=== PATIENT | female | born 1965 | race African-American/Black ===

== ENCOUNTER 2016-09-24 03:12 | Emergency (ER) | payer SELFPAY ==
[~2016-09-24] VITALS: Ht 170.2 cm; Wt 55.0 kg
[2016-09-24] MEDS ORDERED: DIPHENHYDRAMINE 50MG/ML VIAL IM ONE (06:30)
[2016-09-24] MEDS ORDERED: IBUPROFEN 400MG TABLET PO ONE (06:45)
[2016-09-24 06:47] VITALS: BP 123/94
== END 2016-09-24 07:27 | disposition home or self-care (01) ==
LOC: ER 03:34
DX: L03.213 Periorbital cellulitis (principal); T78.49XA Other allergy, initial encounter; F17.210 Nicotine dependence, cigarettes, uncomplicated; Z98.890 Other specified postprocedural states; X58.XXXA Exposure to other specified factors, initial encounter
CPT/HCPCS: 96372; 99283; J1200; Z7610

== ENCOUNTER 2021-01-14 15:01 | Emergency (ER) | payer MEDICAID ==
[~2021-01-14] VITALS: Ht 170.2 cm; Wt 76.3 kg
[2021-01-14 16:11] LABS: BASOPHILS % 0.7 % (0.0-2.0); HEMATOCRIT. 39.3 % (36.0-48.0); HEMOGLOBIN. 12.7 g/dL (12.0-16.0); LYMPHOCYTES % 37.4 % (20.0-50.0); MEAN CORPUSCULAR HEMOGLOBIN 29.5 pg (28.0-32.0); MEAN CORPUSCULAR VOLUME 91.6 fL (81.0-99.0); MEAN PLATELET VOLUME 8.8 fl (7.4-10.4); MONOCYTES % 6.7 % (2.0-8.0); NEUTROPHILS % 54.2 % (40.0-76.0); PLATELET 314 x1000/uL (130-400); RED BLOOD CELL COUNT 4.29 mill/uL (4.2-5.4); RED CELL DISTRIBUTION WIDTH 14.2 % (11.6-14.6)
[2021-01-14] MEDS ORDERED: LORAZEPAM 1MG TABLET PO ONE (16:15)
[2021-01-14 16:18] LABS: CHLORIDE 109 mEq/L (98-107)
[2021-01-14 18:00] VITALS: BP 155/87
== END 2021-01-14 19:36 | disposition home or self-care (01) ==
LOC: ER 15:01
DX: I10 Essential (primary) hypertension (principal); Z98.890 Other specified postprocedural states
CPT/HCPCS: 36415; 80048; 81025; 82962; 85025; 93005; 99284

== ENCOUNTER 2023-06-23 12:50 | Emergency (ER) | payer MEDICAID, OTHER ==
[~2023-06-23] VITALS: Ht 177.8 cm; Wt 65.0 kg
[2023-06-23 13:08] VITALS: O2SAT 100
[2023-06-23] MEDS: ACETAMINOPHEN 325MG TABLET PO STA (13:43)
[2023-06-23 14:12] LABS: BASOPHILS % 0.4 % (0.0-2.0); EOSINOPHILS % 1.2 % (0.0-5.0); HEMATOCRIT. 38.9 % (36.0-48.0); HEMOGLOBIN. 12.8 g/dL (12.0-16.0); LYMPHOCYTES % 32.7 % (20.0-50.0); MEAN CORPUSCULAR HGB CONC 32.8 g/dL (31.0-37.0); MEAN CORPUSCULAR VOLUME 91.5 fL (81.0-99.0); MEAN PLATELET VOLUME 8.8 fl (7.4-10.4); MONOCYTES % 6.4 % (2.0-8.0); NEUTROPHILS % 59.3 % (40.0-76.0); PLATELET 360 x1000/uL (130-400); RED BLOOD CELL COUNT 4.25 mill/uL (4.2-5.4); RED CELL DISTRIBUTION WIDTH 14.9 % (11.6-14.6); WHITE BLOOD COUNT 6.8 x1000/uL (4.5-11.0)
[2023-06-23 14:20] LABS: CHLORIDE 109 mEq/L (98-107); POTASSIUM 3.5 mEq/L (3.5-5.1); SODIUM 140 mEq/L (136-145)
[2023-06-23 14:21] LABS: CARBON DIOXIDE 25 mEq/L (21-32)
[2023-06-23 14:26] LABS: CREATININE 0.9 mg/dL (0.6-1.0); GLUCOSE 131 mg/dL (70-105); UREA NITROGEN BLOOD 10 mg/dL (9-23)
[2023-06-23 14:27] LABS: TROPONIN I HIGH SENSITIVITY 11 ng/L (3.0-34)
[2023-06-23 14:28] LABS: CREATINE KINASE 53 IU/L (34-145)
[2023-06-23] MEDS: HYDRALAZINE HCL 10MG TABLET PO ONE (14:40)
[2023-06-23 15:47] LABS: CLARITY URINE CLEAR (CLEAR); COLOR URINE YELLOW (YELLOW); GLUCOSE URINE NEGATIVE (NEGATIVE); KETONES URINE NEGATIVE (NEGATIVE); LEUKOCYTE ESTERASE URINE NEGATIVE (NEGATIVE); NITRITE URINE NEGATIVE (NEGATIVE); OCCULT BLOOD URINE NEGATIVE (NEGATIVE); PROTEIN URINE NEGATIVE (NEGATIVE); SPECIFIC GRAVITY URINE 1.014 (1.005-1.030); UROBILINOGEN URINE 0.2 E.U./dL (0.2-1.0)
[2023-06-23 16:07] LABS: TROPONIN I HIGH SENSITIVITY 15 ng/L (3.0-34)
[2023-06-23] MEDS ORDERED: LABETALOL HCL VIAL 20 MG/4 ML VIAL IV ONE (16:30)
[2023-06-23] MEDS: LABETALOL 5MG/ML SYR 20 MG/4 ML SYRINGE IV NR (16:42)
[2023-06-23] MEDS ORDERED: AMLO10TA80 MT (16:50)
[2023-06-23] MEDS ORDERED: PHEN-815 MT (16:50)
[2023-06-23 17:20] VITALS: BP 167/79; PULSE 78; RESP 18; TEMP 98
== END 2023-06-23 17:24 | disposition home or self-care (01) ==
LOC: ER 12:50
DX: R25.2 Cramp and spasm (principal); I10 Essential (primary) hypertension; Z98.890 Other specified postprocedural states
CPT/HCPCS: 80048; 81003; 82550; 85025; 84484; 36415; 71045; 96374; 99285; J3490; Z7610 ×5

== ENCOUNTER 2023-06-25 17:52 | Emergency (ER) | payer MEDICAID ==
[~2023-06-25] VITALS: Ht 170.2 cm; Wt 73.5 kg
[~2023-06-25 17:52] MED LIST: AMLO10TA80 MT; PHEN-815 MT
[2023-06-25 18:02] VITALS: O2SAT 100
[2023-06-25] MEDS ORDERED: HYDRALAZINE HCL 50MG TABLET PO ONE (18:45)
[2023-06-25 18:49] VITALS: BP 189/91; PULSE 78; RESP 18; TEMP 98.2
[2023-06-25] MEDS ORDERED: HYDR50TA40 MT (19:11)
[2023-06-25] MEDS: HYDRALAZINE HCL 25MG TABLET PO NR (19:35)
== END 2023-06-25 19:40 | disposition home or self-care (01) ==
LOC: ER 17:52
DX: I10 Essential (primary) hypertension (principal); Z98.890 Other specified postprocedural states
CPT/HCPCS: 99283; Z7610 ×3

== ENCOUNTER 2023-11-01 15:28 | Emergency (ER) | payer MEDICAID ==
[~2023-11-01] VITALS: Ht 170.2 cm; Wt 73.9 kg
[~2023-11-01 15:28] MED LIST changes: +HYDR50TA40 MT
[2023-11-01 15:30] VITALS: O2SAT 99
[2023-11-01 15:44] VITALS: BP 202/103; PULSE 98; TEMP 99.1; O2SAT 100
[2023-11-01 16:25] LABS: BASOPHILS % 0.4 % (0.0-2.0); EOSINOPHILS % 1.3 % (0.0-5.0); HEMOGLOBIN. 13.2 g/dL (12.0-16.0); MEAN CORPUSCULAR HEMOGLOBIN 30.9 pg (28.0-32.0); MEAN CORPUSCULAR HGB CONC 33.9 g/dL (31.0-37.0); MEAN CORPUSCULAR VOLUME 91.3 fL (81.0-99.0); MEAN PLATELET VOLUME 7.8 fl (7.4-10.4); MONOCYTES % 6.4 % (2.0-8.0); NEUTROPHILS % 46.9 % (40.0-76.0); PLATELET 381 x1000/uL (130-400); RED BLOOD CELL COUNT 4.28 mill/uL (4.2-5.4); RED CELL DISTRIBUTION WIDTH 14.7 % (11.6-14.6)
[2023-11-01 16:34] LABS: CHLORIDE 108 mEq/L (98-107); POTASSIUM 3.8 mEq/L (3.5-5.1); SODIUM 140 mEq/L (136-145)
[2023-11-01 16:35] LABS: CARBON DIOXIDE 25 mEq/L (21-32)
[2023-11-01 16:36] LABS: CALCIUM 9.8 mg/dL (8.7-10.4)
[2023-11-01 16:40] LABS: CREATININE 0.9 mg/dL (0.6-1.0); GLUCOSE 97 mg/dL (70-105); UREA NITROGEN BLOOD 12 mg/dL (9-23)
[2023-11-01] MEDS ORDERED: HYDR50TA40 MT (17:26)
[2023-11-01] MEDS ORDERED: AMLO10TA80 MT (17:27)
[2023-11-01] MEDS ORDERED: KETO10TA2 MT (17:30)
[2023-11-01] MEDS ORDERED: AMOX1TAB16 MT (17:30)
== END 2023-11-01 19:41 | disposition home or self-care (01) ==
LOC: ER 15:28
DX: I10 Essential (primary) hypertension (principal); K04.7 Periapical abscess without sinus; Z79.899 Other long term (current) drug therapy; Z98.890 Other specified postprocedural states
CPT/HCPCS: 36415; 80048; 85025; 99283

== ENCOUNTER 2023-12-21 14:27 | Emergency (ER) | payer MEDICAID ==
[~2023-12-21] VITALS: Ht 170.2 cm; Wt 75.0 kg
[~2023-12-21 14:27] MED LIST changes: +AMOX1TAB16 MT; +KETO10TA2 MT
[2023-12-21 14:30] VITALS: O2SAT 100
[2023-12-21] MEDS ORDERED: AMLO10TA80 MT (17:56)
[2023-12-21] MEDS ORDERED: AMOX1TAB16 MT (17:56)
[2023-12-21] MEDS ORDERED: HYDR50TA40 MT (17:56)
[2023-12-21 18:06] VITALS: TEMP 98.5
[2023-12-21] MEDS: ACETAMINOPHEN 500MG TABLET PO ONE (18:06)
[2023-12-21 18:10] VITALS: BP 140/84; PULSE 77; RESP 16; O2SAT 99
== END 2023-12-21 18:11 | disposition home or self-care (01) ==
LOC: ER 14:27
DX: K01.1 Impacted teeth (principal); Z76.0 Encounter for issue of repeat prescription
CPT/HCPCS: 99283

== ENCOUNTER 2024-03-15 16:47 | Emergency (ER) | payer MEDICAID ==
[~2024-03-15] VITALS: Ht 170.2 cm; Wt 74.8 kg
[2024-03-15 16:49] VITALS: O2SAT 99
[2024-03-15 16:56] VITALS: BP 201/97; PULSE 88; RESP 16; TEMP 36.6; O2SAT 100
[2024-03-15] MEDS ORDERED: AMLO10TA80 MT (20:35)
[2024-03-15] MEDS ORDERED: HYDR50TA40 MT (20:35)
[2024-03-15] MEDS ORDERED: AMOX1TAB16 MT (20:59)
[2024-03-15 21:02] LABS: BASOPHILS % 0.9 % (0.0-2.0); HEMATOCRIT. 37.1 % (36.0-48.0); HEMOGLOBIN. 12.1 g/dL (12.0-16.0); MEAN CORPUSCULAR HEMOGLOBIN 29.9 pg (28.0-32.0); MEAN CORPUSCULAR HGB CONC 32.7 g/dL (31.0-37.0); MEAN CORPUSCULAR VOLUME 91.7 fL (81.0-99.0); MONOCYTES % 5.5 % (2.0-8.0); NEUTROPHILS % 41.6 % (40.0-76.0); PLATELET 394 x1000/uL (130-400); RED BLOOD CELL COUNT 4.04 mill/uL (4.2-5.4); RED CELL DISTRIBUTION WIDTH 14.7 % (11.6-14.6); WHITE BLOOD COUNT 6.8 x1000/uL (4.5-11.0)
[2024-03-15 21:05] LABS: CHLORIDE 107 mEq/L (98-107); POTASSIUM 4.1 mEq/L (3.5-5.1); SODIUM 140 mEq/L (136-145)
[2024-03-15 21:06] LABS: CARBON DIOXIDE 29 mEq/L (21-32)
[2024-03-15 21:07] LABS: CALCIUM 9.9 mg/dL (8.7-10.4)
[2024-03-15 21:11] LABS: CREATININE 0.8 mg/dL (0.6-1.0); GLUCOSE 100 mg/dL (70-105)
[2024-03-15 21:12] LABS: UREA NITROGEN BLOOD 10 mg/dL (9-23)
== END 2024-03-15 20:37 | disposition home or self-care (01) ==
LOC: ER 16:47
DX: K04.7 Periapical abscess without sinus (principal); I10 Essential (primary) hypertension; Z76.0 Encounter for issue of repeat prescription; Z79.899 Other long term (current) drug therapy; Z98.890 Other specified postprocedural states
CPT/HCPCS: 36415; 80048; 85025; 99283

== ENCOUNTER 2024-05-08 17:14 | Emergency (ER) | payer MEDICAID ==
[~2024-05-08] VITALS: Ht 170.2 cm; Wt 81.4 kg
[2024-05-08 17:21] VITALS: O2SAT 100
[2024-05-08 17:53] VITALS: BP 195/94; PULSE 109; RESP 18; TEMP 37; O2SAT 100
[2024-05-08] MEDS ORDERED: AMLO10TA80 MT (18:11)
[2024-05-08] MEDS ORDERED: HYDR50TA40 MT (18:11)
== END 2024-05-08 18:26 | disposition home or self-care (01) ==
LOC: ER 17:14
DX: I10 Essential (primary) hypertension (principal); Z76.0 Encounter for issue of repeat prescription
CPT/HCPCS: 99281

== ENCOUNTER 2024-06-08 16:16 | Emergency (ER) | payer MEDICAID ==
[~2024-06-08] VITALS: Ht 167.6 cm; Wt 68.0 kg
[2024-06-08 16:33] VITALS: TEMP 36.9; O2SAT 100
[2024-06-08] MEDS: HYDRALAZINE HCL 50MG TABLET PO ONE (18:00)
[2024-06-08] MEDS ORDERED: HYDR50TA40 MT (18:09)
[2024-06-08] MEDS ORDERED: AMLO10TA80 MT (18:09)
[2024-06-08 18:19] VITALS: BP 157/75; PULSE 84; RESP 19; O2SAT 100
== END 2024-06-08 18:20 | disposition home or self-care (01) ==
LOC: ER 16:16
DX: I10 Essential (primary) hypertension (principal); Z76.0 Encounter for issue of repeat prescription; Z79.899 Other long term (current) drug therapy
CPT/HCPCS: 99283

== ENCOUNTER 2024-07-08 15:59 | Emergency (ER) | payer MEDICAID ==
[~2024-07-08] VITALS: Ht 170.2 cm; Wt 95.0 kg
[2024-07-08 16:15] VITALS: O2SAT 98
[2024-07-08] MEDS ORDERED: HYDR50TA40 MT (18:44)
[2024-07-08] MEDS ORDERED: AMLO10TA80 MT (18:44)
[2024-07-08 18:56] VITALS: BP 170/87; PULSE 82; RESP 18; TEMP 36.9; O2SAT 99
== END 2024-07-08 18:57 | disposition home or self-care (01) ==
LOC: ER 15:59
DX: I10 Essential (primary) hypertension (principal); Z76.0 Encounter for issue of repeat prescription; Z79.899 Other long term (current) drug therapy; Z98.890 Other specified postprocedural states
CPT/HCPCS: 99281

== ENCOUNTER 2024-08-08 14:10 | Emergency (ER) | payer MEDICAID ==
[~2024-08-08] VITALS: Ht 171.4 cm; Wt 81.6 kg
[2024-08-08 14:15] VITALS: O2SAT 100
[2024-08-08] MEDS ORDERED: HYDR50TA40 MT (16:05)
[2024-08-08] MEDS ORDERED: AMLO10TA80 MT (16:05)
[2024-08-08] MEDS ORDERED: BENZ100C86 MT (16:05)
[2024-08-08 16:15] VITALS: BP 195/97; PULSE 94; RESP 16; TEMP 36.9; O2SAT 100
== END 2024-08-08 16:18 | disposition home or self-care (01) ==
LOC: ER 14:10
DX: J06.9 Acute upper respiratory infection, unspecified (principal); I10 Essential (primary) hypertension; Z76.0 Encounter for issue of repeat prescription; Z98.890 Other specified postprocedural states; Z79.899 Other long term (current) drug therapy
CPT/HCPCS: 71045; 99283

== ENCOUNTER 2024-09-07 13:05 | Emergency (ER) | payer MEDICAID ==
[~2024-09-07] VITALS: Ht 172.7 cm; Wt 77.0 kg
[~2024-09-07 13:05] MED LIST changes: +BENZ100C86 MT
[2024-09-07 13:15] VITALS: O2SAT 100
[2024-09-07] MEDS ORDERED: HYDR50TA40 MT (13:51)
[2024-09-07] MEDS ORDERED: AMLO10TA80 MT (13:51)
[2024-09-07] MEDS ORDERED: ACET-2708 MT (13:52)
[2024-09-07 14:07] VITALS: BP 169/91; PULSE 83; RESP 16; TEMP 36.9; O2SAT 100
== END 2024-09-07 14:09 | disposition home or self-care (01) ==
LOC: ER 13:05
DX: K08.89 Other specified disorders of teeth and supporting structures (principal); I10 Essential (primary) hypertension; Z76.0 Encounter for issue of repeat prescription
CPT/HCPCS: 99282